=== PATIENT | male | born 1955 | race Caucasian/White ===

== ENCOUNTER 2018-05-03 11:29 | Emergency (ER) | payer OTHER ==
[~2018-05-03] VITALS: Ht 180.3 cm; Wt 75.0 kg
[2018-05-03 11:34] VITALS: Ht 180.3 cm; Wt 75.0 kg
[2018-05-03] MEDS ORDERED: BAYER CHEWABLE81 MG PO (11:35)
[2018-05-03 11:57] LABS: BASOPHILS 0.1 % (0-2); EOSINOPHILS 0.7 % (0-7); HEMATOCRIT 43.3 % (42.0-54.0); HEMOGLOBIN 14.9 g/dL (13.5-17.5); IMMATURE GRANULOCYTES 0.1 % (0-5); LYMPHOCYTES 24.3 % (15-50); MCH 32.7 pg (26.0-34.0); MCHC 34.4 g/dL (31.0-37.0); MEAN PLATELET VOLUME 9.1 fL (7.4-10.4); MONOCYTES 11.8 % (2-11); PLATELET COUNT 224 10x3/uL (130-400); RBC 4.56 10x6/uL (4.20-6.10); RDW 12.6 % (11.5-14.5); WBC 7.3 10x3/uL (4.8-10.8)
[2018-05-03 12:12] LABS: ALBUMIN 4.2 g/dL (3.4-5.0); ALKALINE PHOSPHATASE 68 U/L (46-116); ALT (SGPT) 30 U/L (10-68); CALC OSMOLALITY 281 mosm/kg (275-300); CARBON DIOXIDE 26.9 mmol/L (21.0-32.0); CHLORIDE - SERUM 105 mmol/L (98-107); CREATININE - SERUM 0.9 mg/dL (0.6-1.3); GLUCOSE 100 mg/dL (74-106); POTASSIUM - SERUM 4.7 mmol/L (3.5-5.1); PROTEIN - SERUM 7.7 g/dL (6.4-8.2); SODIUM 141 mmol/L (136-145); UREA NITROGEN 14 mg/dL (7-18); eGFR NON AFRICAN AMERICAN > 90 mL/min (90-120)
[2018-05-03 12:18] LABS: APTT 36.6 SECONDS (22.8-39.4)
[2018-05-03 12:21] LABS: PROTIME 12.8 SECONDS (11.6-15.0)
[2018-05-03 12:24] LABS: CKMB 1.5 U/L (0.0-3.6); CREATINE KINASE 118 UL (21-232)
[2018-05-03 12:26] LABS: TROPONIN-I < 0.017 ng/mL (0.000-0.060)
[2018-05-03] MEDS ORDERED: MEDROL DOSE PACK4 MG PO (13:29)
[2018-05-03] MEDS ORDERED: MECLIZINE HCL25 MG PO (13:29)
[2018-05-03 13:50] VITALS: BP 141/56
== END 2018-05-03 13:54 | disposition home or self-care (01) ==
LOC: D.ER 11:29
PROVIDERS: Family Medicine
DX: H81.10 Benign paroxysmal vertigo, unspecified ear (principal); Z86.73 Personal history of transient ischemic attack (TIA), and cerebral infarction without residual deficits